=== PATIENT | female | born 1945 | race African-American/Black ===

== ENCOUNTER 2020-06-05 16:47 | Emergency (ER) | payer MEDICARE, OTHER ==
--- OUTSIDE RECORDS SUMMARY | 2020-06-05 16:49 | XMS REPORT | Clinical Summary ---
:1945 Author Organization [facility] Address [address] [place] [address] Care Team Providers Name Role Phone MD Stefanie Primary Care Provider Allergies Not on File Medications Not on file Active Problems Not on file Social History Tobacco Use Types Packs/Day Years Used Date Never Assessed Sex Assigned at Date Recorded Not on file Job Start Date Occupation Industry Not on file Not on file Not on file Travel History Travel Start Travel End No recent travel history available. Last Filed Vital Signs Not on file Plan of Treatment Health Maintenance Due Date Last Done Comments BREAST CANCER SCREENING 1997 COLONOSCOPY SCREENING 1997 SHINGLES VACCINES (#1) 1997 65+ PNEUMOCOCCAL VACCINE (1 of 2 - PCV13) 02/18/2012 INFLUENZA VACCINE 05/20/2020 Results Not on fileafter 06/05/2019 Insurance Payer Benefit Plan / Subscriber ID Effective Dates Phone Addre ss Type Group MEDICARE MEDICARE PART A xxxxxxxxxx 1998-Present [employer] Medicare AND B Guarantor Name Account Type Relation to Date of Phone Billing Patient Address Debi Sanches Personal/Family Self 1945 [id number] (Home) [place] [phone] [id number] (Work) Advance Directives For more information, please contact: [phone] Type Date Recorded Patient Cuffer Explanati on Advance Directives, Living Will and 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
--- OUTSIDE RECORDS SUMMARY | 2020-06-05 16:49 | XMS REPORT | Clinical Summary ---
:1945 Author Organization [facility] Address [address] [place] [address] Care Team Providers Name Role Phone Unavailable Primary Care Provider Unavailable Allergies No Known Allergies Medications Medication Sig Dispensed Refills Start Date End Date Status spironolactone Take 25 mg by mouth 0 Active (ALDACTONE) 25 MG 2 (two) times tablet daily. acetaZOLAMIDE Take 250 mg by 0 A ctive (DIAMOX) 250 MG mouth daily. tablet loratadine (CLARITIN) Take 10 mg by mouth 0 Active 10 mg tablet daily. cholecalciferol, Take 2,000 Units by 0 Active vitamin D3, 2,000 mouth daily. unit Tab omega-3 fatty Take 1,200 mg by 0 Active acids-vitamin E 1,000 mouth daily. mg Cap atorvastatin Take 40 mg by mouth 0 Active (LIPITOR) 40 MG daily. tablet folic acid (FOLVITE) Take 400 mcg by 0 Active 800 MCG tablet mouth daily. polycarbophil Take 625 mg by 0 A ctive (FIBERCON) 625 mg mouth daily. tablet tiotropium (SPIRIVA) Inhale 18 mcg by 0 Active 18 mcg inhalation mouth via inhaler capsule daily. arformoterol Take 15 mcg by 0 Ac tive (BROVANA) 15 mcg/2 mL nebulization 2 nebulizer solution (two) times daily. famotidine (PEPCID) Take 20 mg by mouth 0 Active 20 MG tablet daily. predniSONE Take 1 tablet (10 0 02/26/2017 Active (DELTASONE) 10 MG mg total) by mouth tablet as needed. Active Problems Problem Noted Date Stroke 02/24/2017 COPD (chronic obstructive pulmonary disease) 7 H/O: lung cancer 02/24/2017 Seizure 02/24/2017 Respiratory failure 02/23/2017 Acute respiratory failure with hypercapnia 02/23/2017 Acute encephalopathy 02/23/2017 Essential hypertension 02/23/2017 Family History Medical History Relation Name Comments COPD Brother Cancer Brother Asthma Daughter Diabetes Daughter Hypertension Daughter Cancer Father Asthma Sister Cancer Sister Mental illness Sister Hypertension Son Relation Name Status Comments Brother Daughter Father Sister Son Social History Tobacco Use Types Packs/Day Years Used Date Light Tobacco Smoker 0.25 Alcohol Use Drinks/Week oz/Week Comments No Sex Assigned at Date Recorded Not on file Job Start Date Occupation Industry Not on file Not on file Not on file Travel History Travel Start Travel End No recent travel history available. Last Filed Vital Signs Not on file Plan of Treatment Not on file Results Not on fileafter 06/05/2019 Insurance Payer Benefit Plan / Group Subscriber ID Type Phone A ddress MEDICARE MEDICARE A B xxxxxxxxxx Medicare Advance Directives For more information, please contact:[place] [address] [place], [place] [phone] Code Status Date Activated Date Inactivated Comments Full Code 02/23/2017 9:15 AM 02/26/2017 3:16 PM This code status was determined by: Patient
--- OUTSIDE RECORDS SUMMARY | 2020-06-05 16:50 | XMS REPORT | Continuity of Care Document ---
:1945 Author Organization [facility] t Address [address] [place] [address] Care Team Providers Name Role Phone Stefanie SANDHU Primary Care Physician KENDRA Attending Clinician Unavailable KENDRA Admitting Clinician Unavailable Problems Condition Condition Condition Status Onset Resolution Last Treating Co mments Source Name Details Category Date Date Treatment Clinician Date Stroke St[facility] Disease [facility] [place] COPD COPD Disease Active [facility] ([facility]ronic [facility] - obstructiv obstructiv 00:00: Me dical e e 00 Center pulmonary pulmonary disease) disease) H/O: lung H/O: lung Disease Active [facility] cancer cancer 02-24 [facility] 00 Center Seizure Seizure Disease Active [facility] 00 Center Respirator Respirator Disease Active [facility] y failure y failure 02-23 [facility] - [facility] 00 Center Acute Acute Disease Active [facility] respirator respirator 02-23 Roxana kes - y failure y failure 00:00: [facility] mariel with with 00 Center hypercapni hypercapni a a Acute Acute Disease Active [facility] encephalop encephalop - Roxana kes - athy athy 00:00: Medical 00 [place] Essential Essential Disease Active 2017-[address] [facility] hypertensi hypertensi - Roxana kes - on on 00:00: Medical 00 Center Iron Iron Problem Active [facility] deficiency deficiency Roxana kes - anemia anemia [facility] Umbilical Umbilical Problem Active [facility] hernia hernia [facility] - [facility] Hemorrhoid Hemorrhoid Problem Active [facility] 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 rhinitis [facility] - [facility] Dependence Dependence Problem Active [facility] on [facility] - supplement supplement Me moria al oxygen al oxygen l [facility] Hypertensi Hypertensi Problem Active [facility] on [facility] - [facility] Bilateral Bilateral Problem Active [facility] - extremity extremity Jc lita edema edema l [facility] Hyperglobu Hyperglobu Problem Active [facility] linemia linemia [facility] - [facility] Hyperlipid Hyperlipid Problem Active [facility] emia emia kes - [facility] Anemia Anemia Problem Active [facility] Lung Lung Problem Active [facility] cancer cancer [facility] - [facility] COPD COPD Problem Active [facility] (chronic (chronic [facility] - obstructiv obstructiv Me moria e e l pulmonary pulmonary Outp ati disease) disease) ent Clinics Vitamin D Vitamin D Problem Active [facility] deficiency deficiency Roxana kes - [facility] Diabetes Diabetes Problem Active [facility] mellitus mellitus [facility] - type 2, type 2, Memoria diet-contr diet-contr l olled olled [facility] Family Family Problem Active [facility] history of history of Roxana kes - colon colon [facility] cancer cancer l [facility] History of History of Problem Active [facility] cerebrovas cerebrovas Roxana kes - cular cular [facility]oria accident accident l [facility] Diverticul Diverticul Problem Active [facility] osis of osis of [facility] - colon colon [facility] Seizure Seizure Problem Active [facility] disorder disorder [facility] - [facility] Dementia Dementia Problem Active [facility] without without [facility] - behavioral behavioral Me moria disturbanc disturbanc l e, e, Outpati unspecifie unspecifie en t d dementia d dementia Cl inics type type Medicare Medicare Problem Active [facility] t annual annual [facility] - wellness wellness [facility] a visit, visit, l subsequent subsequent [facility] Clinics Allergies, Adverse Reactions, Alerts This patient has no known allergies or adverse reactions. Family History Family Member Diagnosis Comments Start Date Stop Date Source Natural brother COPD [facility] Natural brother Cancer [facility] Natural daughter Asthma [facility] Natural daughter Diabetes [facility] Natural daughter Hypertension [facility] Natural father Cancer [facility] Natural sister Asthma [facility] Natural sister Cancer [facility] Natural sister Mental illness [facility] Natural son Hypertension [facility] Social History Social Habit Start Date Stop Date Quantity Comments Source Sex Assigned At [facility] Cigarettes smoked 2017-02-24 2017-02-24 [facility] current (pack per 00:00:00 00:00:00 Medical Center day) - Reported Smoking Status Start Date Stop Date Source Light tobacco smoker 2017-02-24 00:00:00 [facility] Medications Ordered Filled Start Stop Current Ordering Indication Dosage Frequency Signature Comments Components Source Medication Medication Date Date Medication? Clinician (SIG) Name Name Ferrous Ferrous 2018-09 Yes Na Lin [address] [facility] Sulfate Sulfate 0-28 [facility] - 00:[facility]: [facility] 00 [facility] Hemocyte Hemocyte 2018-09 Yes Na Lin [address] [facility] Plus Plus 0-24 [facility] - 00:00: [facility]oria 00 [facility] predniSONE Yes 10mg Take 1 [facility] (DELTASONE) 6-10 tablet (10 Roxana kes - 10 MG 00:00: mg total) Medical tablet 00 by mouth Center as needed. spironolact Yes 25mg Q.5D Take [address] [facility] one 6-07 by mouth 2 [facility] - (ALDACTONE) 18:44: (two) Medic al 25 MG 53 times Center tablet daily. acetaZOLAMI Yes 250mg QD Take [address] [place] (DIAMOX) 6-07 mg by [facility] - 250 MG 18:44: mouth Medical tablet 53 daily. [place] loratadine Yes 10mg QD Take [address] (CLARITIN) 6-07 by mouth [facility] - 10 mg 18:44: daily. Medical tablet 53 [place] cholecalcif Yes 2000U QD Take 2,[address] omer, 6-07 Units by [facility] - vitamin D3, 18:44: mouth Medic al 2,000 unit 53 daily. [place] Tab omega-3 Yes 1200mg QD Take 1,[address] fatty 6-07 mg by [facility] - acids-vitam 18:44: mouth Medic al in E 1,000 53 daily. [place] mg Cap atorvastati Yes 40mg QD Take [address] n (LIPITOR) 6-07 by mouth Luke [facility] - 40 MG 18:44: daily. Medical tablet 53 [place] folic acid Yes 400ug QD Take [address] (FOLVITE) 6-07 mcg by [facility] - 800 MCG 18:44: mouth Medical tablet 53 daily. [place] polycarboph Yes 625mg QD Take [address] il 6-07 mg by [facility] - (FIBERCON) 18:44: mouth Medica l 625 mg 53 daily. [place] tablet tiotropium Yes 18ug QD Inhale [address] (SPIRIVA) 6-07 mcg by [facility] - 18 mcg 18:44: mouth via Medica l inhalation 53 inhaler Center capsule daily. arformotero Yes 15ug Q.5D Take [address] l (BROVANA) 6-07 mcg by [facility] - 15 mcg/2 mL 18:44: nebulizati Medical nebulizer 53 on 2 (two) Cent er solution times daily. famotidine Yes 20mg QD Take [address] (PEPCID) 20 6-07 by mouth Luke s - MG tablet 18:44: daily. Medica l 53 [place] Lasix Lasix Yes Na Lin [address] [facility] - [facility] Spiriva Spiriva Yes Na Lin [address] HandiHaler HandiHaler Iris es - Memoria [facility] Klor-Con 10 Klor-Con 10 Yes Na Lin TAKE [address] [facility] TABLET BY [facility]ukes - MOUTH Memoria EVERY DAY l [facility] ent Clinics ProAir HFA ProAir HFA Yes Na Lin [address] [facility] needed [facility] - [facility] Vitamin D3 Vitamin D3 Yes Na Lin [address] [facility] - [facility] l [facility] Claritin Claritin Yes Na Lin [address] [facility] - [facility] Albuterol Albuterol Yes Na Lin [address] [facility] Sulfate Sulfate needed [facility] - [facility]oria l [facility] Lipitor Lipitor Yes Na Lin [address] [facility] - [facility] l [facility] ent [facility] Lipitor Lipitor Yes Na Lin [address] kes - Memoria [facility] Spironolact Spironolact Yes Na Lin [address] [facility] one one with food [facility] Folic Acid Folic Acid Yes Na Lin [address] [facility] kes - Memoria l [facility] Levetiracet Levetiracet Yes Na Lin [address] am am [facility] - Memoria [facility] Furosemide Furosemide Yes Na Lin TAKE [address] [facility] TABLET BY Lukes - MOUTH Memoria DAILY FOR l 30 DAYS [facility] Brovana Brovana Yes Na Lin [address] kes - Memoria l [facility] Atorvastati Atorvastati Yes Na Lin TAKE [address] [facility] n Calcium n Calcium TABLET BY [facility]ukes - MOUTH Memoria EVERY DAY l [facility] Potassium Potassium Yes Na Lin TAKE [address] [facility] Chloride ER Chloride ER TABLET BY [facility]ukes - MOUTH Memoria EVERY DAY l [facility] Immunizations Ordered Filled Immunization Date Status Comments [facility] e Immunization Name Name FluJOSE ROBERTO FluAD 2018-06-[address] [facility] - 00:[facility]00 [facility] Procedures This patient has no known procedures. Plan of Care Planned Activity Planned Date Details Comments Source Future Scheduled 2020-05-20 INFLUENZA VACCINE Aretha angulo [facility] 00:00:00 [code = INFLUENZA VACCINE] Future Scheduled 2012-02-18 65+ PNEUMOCOCCAL [place] [facility] 00:00:00 VACCINE (1 of 2 - PCV13) [code = 65+ PNEUMOCOCCAL VACCINE (1 of 2 - PCV13)] Future Scheduled 1997 BREAST CANCER [facility]ist Test 00:00:00 SCREENING [code = BREAST CANCER SCREENING] Future Scheduled 1997 COLONOSCOPY SCREENING abelino [facility] Test 00:00:00 [code = COLONOSCOPY SCREENING] Future Scheduled 1997 SHINGLES VACCINES (#1) [place] [facility] 00:00:00 [code = SHINGLES VACCINES (#1)] Encounters Start End Encounter Admission Attending Care Care Encounter Source Date/Time Date/Time Type Type Clinicians Facility Department ID 2020-04-13 2020-04-13 [facility] [id number] [facility] 12:42:00 12:42:00 t [facility] [employer] [facility] Medicine l Medicine Outpati ent Clinics 2020-03-25 2020-03-25 [facility] [id number] [facility] 09:40:00 09:40:00 t [facility] [employer] [facility] Medicine l Medicine Outpati ent Clinics 2019-12-20 2019-12-20 [facility] [id number] [facility] 09:20:00 09:20:00 t [facility] [employer] [facility] Medicine l Medicine Outpati ent Clinics 2019-10-03 2019-10-03 [facility] [id number] [facility] 16:31:00 16:31:00 t [facility] [employer] [facility] Medicine Medicine Outpati ent Clinics 2019-07-14 2019-07-14 [facility] [id number] [facility] 14[facility]53:00 14:53:00 t [facility] [employer] [facility] Medicine Outpati ent Clinics 2019-07-11 2019-07-11 [facility] [id number] 09:56:00 09:56:00 t [facility] [employer] [facility] Medicine l Medicine Outpati ent Clinics 2019-07-11 2019-07-11 [facility] [id number] 09:00:00 09:00:00 t [facility] [employer] [facility] Medicine l Medicine Outpati ent Clinics 2019-04-05 2019-04-05 [facility] [id number] [facility] 11[facility]40:00 11:40:00 t [facility] [employer] [facility] Medicine l Medicine Outpati ent Clinics 2018-12-13 2018-12-13 [facility] [id number] [facility] 09:15:00 09:15:00 t [facility] [employer] [facility] Medicine Outpati ent Clinics 2018-12-13 2018-12-13 [facility] [id number] 09:00:00 09:00:00 t [employer] - [employer] [facility] Medicine Outpati ent Clinics 2018-09-14 2018-09-14 [facility] [id number] [facility] 09:00:00 09:00:00 t Fredio s - [place] [facility] Medicine Outpati ent Clinics 2018-06-15 2018-06-15 [facility] [id number] 09:15:00 09:15:00 t [employer] - [employer] [facility] Medicine Outpati ent Clinics 2018-03-15 2018-03-15 [facility] [id number] 11:15:00 11:15:00 t [employer] [facility] Medicine Outpati ent Clinics 2017-12-07 2017-12-07 [facility] [id number] 09:30:00 09:30:00 t [employer] [facility] Medicine Outpati ent Clinics Results Test Description Test Time Test Comments Results Result Comments Source BLOOD CULTURE 2017-03-02 06:00:00 Test Item Value Reference Range Interpretation Comme nts CULTURE (BEAKER) (test code = 1095) No growth in 5 days BLOOD [id number] 18:00:00 Test Item Value Reference Range Interpretation Comments CULTURE (BEAKER) (test No growth in 5 days code = 1095) POCT-GLUCOSE [id number] 04:51:00 Test Item Value Reference Range Interpretation Comments POC-GLUCOSE METER 129 mg/dL 70-110 H TESTED AT [facility] (BEAKER) (test code = [place] 1538) [id number] POCT-GLUCOSE [id number] 04:49:00 Test Item Value Reference Range Interpretation Comments POC-GLUCOSE METER 128 mg/dL 70-110 H TESTED AT [facility] (BEAmakem) (test code = [place] 1538) [id number] URINE [id number] 11:35:00 Test Item Value Reference Range Interpretation Comments CULTURE (BEAKER) (test code = 1095) No growth COMPREHENSIVE METABOLIC [id number] 04:43:00 Test Item Value Reference Range Interpretation Comments TOTAL PROTEIN 6.9 gm/dL 6.0-8.3 (BEAKER) (test code = 770) ALBUMIN (BEAKER) 3.5 g/dL 3.5-5.0 (test code = 1145) ALKALINE PHOSPHATASE 92 U/L 40-150 (BEAKER) (test code = 346) BILIRUBIN TOTAL 0.2 mg/dL 0.2-1.2 (BEAKER) (test code = 377) SODIUM (BEAKER) (test 145 meq/L 136-145 code = 381) POTASSIUM (BEAKER) 3.6 meq/L 3.5-5.1 (test code = 379) CHLORIDE (BEAKER) 105 meq/L 98-107 (test code = 382) CO2 (BEAKER) (test 30 meq/L 22-29 H code = 355) BLOOD UREA NITROGEN 16 mg/dL 7-21 (BEAKER) (test code = 354) CREATININE (BEAKER) 0.73 mg/dL 0.57-1.25 (test code = 358) GLUCOSE RANDOM 102 mg/dL 70-105 (BEAKER) (test code = 652) CALCIUM (BEAKER) 9.5 mg/dL 8.4-10.2 (test code = 697) AST (SGOT) (BEAKER) 15 U/L 5-34 (test code = 353) ALT (SGPT) (BEAKER) 8 U/L 6-55 (test code = 347) EGFR (BEAKER) (test 96 mL/min/1.73 ESTIMA PAULETTE GFR IS code = 1092) sq m NOT ACCURATE CREATININE CLEARANCE IN PREDICTING GLOMERULAR FILTRATION RATE . ESTIMATED GFR I S NOT APPLICABLE FOR DIALYSIS PATIEN TS. CBC W/PLT COUNT & AUTO [id number] 03:54:00 Test Item Value Reference Range Interpretation Comments WHITE BLOOD CELL COUNT (BEAKER) 8.9 K/ L 4.0-10.0 (test code = 775) RED BLOOD CELL COUNT (BEAKER) 3.55 M/ L 4.00-5.00 L (test code = 761) HEMOGLOBIN (BEAKER) (test code = 10.7 GM/DL 12.0-15.0 L 410) HEMATOCRIT (BEAKER) (test code = 34.3 % 36.0-45.0 L 411) MEAN CORPUSCULAR VOLUME (BEAKER) 96.7 fL 82.0-99.0 (test code = 753) MEAN CORPUSCULAR HEMOGLOBIN 30.1 pg 27.0-33.0 (BEAKER) (test code = 751) MEAN CORPUSCULAR HEMOGLOBIN CONC 31.1 GM/DL 32.0-36.0 L (BEAKER) (test code = 752) RED CELL DISTRIBUTION WIDTH 14.8 % 10.3-14.2 H (BEAKER) (test code = 412) PLATELET COUNT (BEAKER) (test 222 K/CU MM 150-430 code = 756) MEAN PLATELET VOLUME (BEAKER) 8.0 fL 6.5-10.5 (test code = 754) NUCLEATED RED BLOOD CELLS 0 /100 WBC 0-0 (BEAKER) (test code = 413) NEUTROPHILS RELATIVE PERCENT 68 % (BEAKER) (test code = 429) LYMPHOCYTES RELATIVE PERCENT 24 % (BEAKER) (test code = 430) MONOCYTES RELATIVE PERCENT 8 % (BEAKER) (test code = 431) EOSINOPHILS RELATIVE PERCENT 0 % (BEAKER) (test code = 432) BASOPHILS RELATIVE PERCENT 0 % (BEAKER) (test code = 437) NEUTROPHILS ABSOLUTE COUNT 6.03 K/ L 1.80-8.00 (BEAKER) (test code = 670) LYMPHOCYTES ABSOLUTE COUNT 2.16 K/ L 1.48-4.50 (BEAKER) (test code = 414) MONOCYTES ABSOLUTE COUNT (BEAKER) 0.72 K/ L 0.00-1.30 (test code = 415) EOSINOPHILS ABSOLUTE COUNT 0.02 K/ L 0.00-0.50 (BEAKER) (test code = 416) BASOPHILS ABSOLUTE COUNT (BEAKER) 0.01 K/ L 0.00-0.20 (test code = 417) 0.00POCT-GLUCOSE [id number] 13:06:00 Test Item Value Reference Range Interpretation Comments POC-GLUCOSE METER 180 mg/dL 70-[address] [facility] (BEAKER) (test code = [place] 1538) [id number] POCT-GLUCOSE [id number] 06:19:00 Test Item Value Reference Range Interpretation Comments POC-GLUCOSE METER 151 mg/dL 70-[address] [facility] (BEAKER) (test code = [place] 1538) [id number] COMPREHENSIVE METABOLIC [id number] 05:21:00 Test Item Value Reference Range Interpretation Comments TOTAL PROTEIN 6.8 gm/dL 6.0-8.3 (BEAKER) (test code = 770) ALBUMIN (BEAKER) 3.3 g/dL 3.5-5.0 L (test code = 1145) ALKALINE PHOSPHATASE 82 U/L 40-150 (BEAKER) (test code = 346) BILIRUBIN TOTAL 0.1 mg/dL 0.2-1.2 L (BEAKER) (test code = 377) SODIUM (BEAKER) (test 146 meq/L 136-145 H code = 381) POTASSIUM (BEAKER) 3.8 meq/L 3.5-5.1 (test code = 379) CHLORIDE (BEAKER) 110 meq/L 98-107 H (test code = 382) CO2 (BEAKER) (test 28 meq/L 22-29 code = 355) BLOOD UREA NITROGEN 17 mg/dL 7-21 (BEAKER) (test code = 354) CREATININE (BEAKER) 0.70 mg/dL 0.57-1.25 (test code = 358) GLUCOSE RANDOM 103 mg/dL 70-105 (BEAKER) (test code = 652) CALCIUM (BEAKER) 9.3 mg/dL 8.4-10.2 (test code = 697) AST (SGOT) (BEAKER) 12 U/L 5-34 (test code = 353) ALT (SGPT) (BEAKER) 8 U/L 6-55 (test code = 347) EGFR (BEAKER) (test 100 ESTIMATE D GFR IS code = 1092) mL/min/1.73 sq NOT ACCURA TE m CREATININE CLEARANCE IN PREDICTING GLOMERULAR FILTRATION RATE . ESTIMATED GFR I S NOT APPLICABLE FOR DIALYSIS PATIEN TS. CBC W/PLT COUNT & AUTO [id number] 05:13:00 Test Item Value Reference Range Interpretation Comments WHITE BLOOD CELL COUNT (BEAKER) 8.9 K/ L 4.0-10.0 (test code = 775) RED BLOOD CELL COUNT (BEAKER) 3.49 M/ L 4.00-5.00 L (test code = 761) HEMOGLOBIN (BEAKER) (test code = 10.7 GM/DL 12.0-15.0 L 410) HEMATOCRIT (BEAKER) (test code = 34.2 % 36.0-45.0 L 411) MEAN CORPUSCULAR VOLUME (BEAKER) 98.1 fL 82.0-99.0 (test code = 753) MEAN CORPUSCULAR HEMOGLOBIN 30.6 pg 27.0-33.0 (BEAKER) (test code = 751) MEAN CORPUSCULAR HEMOGLOBIN CONC 31.2 GM/DL 32.0-36.0 L (BEAKER) (test code = 752) RED CELL DISTRIBUTION WIDTH 13.5 % 10.3-14.2 (BEAKER) (test code = 412) PLATELET COUNT (BEAKER) (test 213 K/CU MM 150-430 code = 756) MEAN PLATELET VOLUME (BEAKER) 7.9 fL 6.5-10.5 (test code = 754) NUCLEATED RED BLOOD CELLS 0 /100 WBC 0-0 (BEAKER) (test code = 413) NEUTROPHILS RELATIVE PERCENT 76 % (BEAKER) (test code = 429) LYMPHOCYTES RELATIVE PERCENT 18 % (BEAKER) (test code = 430) MONOCYTES RELATIVE PERCENT 6 % (BEAKER) (test code = 431) EOSINOPHILS RELATIVE PERCENT 0 % (BEAKER) (test code = 432) BASOPHILS RELATIVE PERCENT 0 % (BEAKER) (test code = 437) NEUTROPHILS ABSOLUTE COUNT 6.83 K/ L 1.80-8.00 (BEAKER) (test code = 670) LYMPHOCYTES ABSOLUTE COUNT 1.58 K/ L 1.48-4.50 (BEAKER) (test code = 414) MONOCYTES ABSOLUTE COUNT (BEAKER) 0.51 K/ L 0.00-1.30 (test code = 415) EOSINOPHILS ABSOLUTE COUNT 0.01 K/ L 0.00-0.50 (BEAKER) (test code = 416) BASOPHILS ABSOLUTE COUNT (BEAKER) 0.01 K/ L 0.00-0.20 (test code = 417) 0.00POCT-GLUCOSE [id number] 00:37:00 Test Item Value Reference Range Interpretation Comments POC-GLUCOSE METER 131 mg/dL 70-[address] [facility] (BEAKER) (test code = [place] 1538) [id number] LACTIC ACID, ARTERIAL, WHOLE [id number] 16:28:00 Test Item Value Reference Range Interpretation Comments LACTATE BLOOD ARTERIAL (2) 3.0 mmol/L 0.5-2.2 H (BEAKER) (test code = 2874) Effective 01/21/2016: Units/Reference Range ChangeNew: 0.5-2.2 mmol/L Previous: 5-20 mg/[id number] 13:41:00 Test Item Value Reference Range Interpretation Comments PROCALCITONIN (BEAKER) (test code 0.06 ng/mL <0.05 H = 3036) SEPSIS RISK (ng/mL)Low: 0.05-0.50Intermediate: 0.51-2.00High: >=2.01URINALYSIS W/ [id number] 12:52:00 Test Item Value Reference Range Interpretation Comments COLOR (BEAKER) (test code = 470) Yellow CLARITY (BEAKER) (test code = Clear 469) SPECIFIC GRAVITY UA (BEAKER) 1.024 1.001-1.035 (test code = 468) PH UA (BEAKER) (test code = 467) 5.5 5.0-8.0 PROTEIN UA (BEAKER) (test code = 10 mg/dL Negative A 464) GLUCOSE UA (BEAKER) (test code = Negative Negative 365) KETONES UA (BEAKER) (test code = Negative Negative 371) BILIRUBIN UA (BEAKER) (test code Negative Negative = 462) BLOOD UA (BEAKER) (test code = Negative Negative 461) NITRITE UA (BEAKER) (test code = Negative Negative 465) LEUKOCYTE ESTERASE UA (BEAKER) Negative Negative (test code = 466) UROBILINOGEN UA (BEAKER) (test 0.2 mg/dL 0.2-1.0 code = 463) RBC UA (BEAKER) (test code = 2 /HPF 519) WBC UA (BEAKER) (test code = 6 /HPF 520) BACTERIA (BEAKER) (test code = Rare 517) MUCUS (BEAKER) (test code = Occasional 1574) SQUAMOUS EPITHELIAL (BEAKER) < /HPF (test code = 516) HYALINE CASTS (BEAKER) (test 16 /LPF code = 514) SOURCE(BEAKER) (test code = Urine, [place] 2795) CBC W/PLT COUNT & AUTO [id number] 06:16:00 Test Item Value Reference Range Interpretation Comments WHITE BLOOD CELL COUNT (BEAKER) 13.4 K/ L 4.0-10.0 H (test code = 775) RED BLOOD CELL COUNT (BEAKER) 3.56 M/ L 4.00-5.00 L (test code = 761) HEMOGLOBIN (BEAKER) (test code = 10.5 GM/DL 12.0-15.0 L 410) HEMATOCRIT (BEAKER) (test code = 34.9 % 36.0-45.0 L 411) MEAN CORPUSCULAR VOLUME (BEAKER) 98.2 fL 82.0-99.0 (test code = 753) MEAN CORPUSCULAR HEMOGLOBIN 29.7 pg 27.0-33.0 (BEAKER) (test code = 751) MEAN CORPUSCULAR HEMOGLOBIN CONC 30.2 GM/DL 32.0-36.0 L (BEAKER) (test code = 752) RED CELL DISTRIBUTION WIDTH 13.6 % 10.3-14.2 (BEAKER) (test code = 412) PLATELET COUNT (BEAKER) (test 195 K/CU MM 150-430 code = 756) MEAN PLATELET VOLUME (BEAKER) 8.5 fL 6.5-10.5 (test code = 754) NUCLEATED RED BLOOD CELLS 0 /100 WBC 0-0 (BEAKER) (test code = 413) NEUTROPHILS RELATIVE PERCENT 84 % (BEAKER) (test code = 429) LYMPHOCYTES RELATIVE PERCENT 10 % (BEAKER) (test code = 430) MONOCYTES RELATIVE PERCENT 5 % (BEAKER) (test code = 431) EOSINOPHILS RELATIVE PERCENT 0 % (BEAKER) (test code = 432) BASOPHILS RELATIVE PERCENT 0 % (BEAKER) (test code = 437) NEUTROPHILS ABSOLUTE COUNT 11.30 K/ L 1.80-8.00 H (BEAKER) (test code = 670) LYMPHOCYTES ABSOLUTE COUNT 1.36 K/ L 1.48-4.50 L (BEAKER) (test code = 414) MONOCYTES ABSOLUTE COUNT (BEAKER) 0.72 K/ L 0.00-1.30 (test code = 415) EOSINOPHILS ABSOLUTE COUNT 0.03 K/ L 0.00-0.50 (BEAKER) (test code = 416) BASOPHILS ABSOLUTE COUNT (BEAKER) 0.05 K/ L 0.00-0.20 (test code = 417) [id number] METABOLIC [id number] 06:11:00 Test Item Value Reference Range Interpretation Comments TOTAL PROTEIN 7.2 gm/dL 6.0-8.3 Specimen sligh tly (BEAKER) (test code = hemoly zed 770) ALBUMIN (BEAKER) 3.3 g/dL 3.5-5.0 L Specimen sl ightly (test code = 1145) hemolyzed ALKALINE PHOSPHATASE 85 U/L 40-150 (BEAKER) (test code = 346) BILIRUBIN TOTAL 0.2 mg/dL 0.2-1.2 Specimen sli ghtly (BEAKER) (test code = hemoly zed 377) SODIUM (BEAKER) (test 144 meq/L 136-145 code = 381) POTASSIUM (BEAKER) 4.5 meq/L 3.5-5.1 Specimen slightly (test code = 379) hemolyzed CHLORIDE (BEAKER) 111 meq/L 98-107 H (test code = 382) CO2 (BEAKER) (test 27 meq/L 22-29 code = 355) BLOOD UREA NITROGEN 13 mg/dL 7-21 (BEAKER) (test code = 354) CREATININE (BEAKER) 0.72 mg/dL 0.57-1.25 Specimen slightly (test code = 358) hemolyzed GLUCOSE RANDOM 135 mg/dL 70-105 H (BEAKER) (test code = 652) CALCIUM (BEAKER) 9.0 mg/dL 8.4-10.2 (test code = 697) AST (SGOT) (BEAKER) 15 U/L 5-34 Specimen slightly (test code = 353) hemolyzed ALT (SGPT) (BEAKER) 8 U/L 6-55 Specimen slightly (test code = 347) hemolyzed EGFR (BEAKER) (test 97 mL/min/1.73 ESTIMA PAULETTE GFR IS code = 1092) sq m NOT ACCURATE CREATININE CLEARANCE IN PREDICTING GLOMERULAR FILTRATION RATE . ESTIMATED GFR I S NOT APPLICABLE FOR DIALYSIS PATIEN TS. LEGIONELLA ANTIGEN, [id number] 00:46:00 Test Item Value Reference Range Interpretation Comments L. PNEUMOPHILA Negative - see Negative fo r L. SEROGP 1 UR AG comment pneumophila (BEAKER) (test code serogrou p 1 antigen, = 1156) suggesting no r ecent or current infe ction with this serog roup. Legionellosis c annot be ruled out si nce other serogroup s and species may cau se disease. STREP PNEUMONIAE [id number] 00:46:00 Test Item Value Reference Range Interpretation Comments STREP PNEUMONIAE Presumptive negative Presumptive negative ANTIGEN (BEAKER) for pneumococcal for pneumococcal (test code = 1615) pneumonia - see pneumonia - see comment commen Presumptive negative for pneumococcal pneumonia, suggesting no current or recent pneumococcal infection. Infection due to S. pneumoniae cannot be ruled out since the antigen present in the sample may be below the detection limit of the test. POCT-GLUCOSE [id number] 18:18:00 Test Item Value Reference Range Interpretation Comments POC-GLUCOSE METER 159 mg/dL 70-[address] [facility] (BEAKER) (test code = TAYLOR Camilo [facility] 1538) [address] BLOOD GAS, [id number] 15:41:00 Test Item Value Reference Range Interpretation Comments PH ARTERIAL (BEAKER) (test code = 7.31 7.35-7.45 L 383) PCO2 ARTERIAL (BEAKER) (test code 57 mmHg 35-45 H = 384) PO2 ARTERIAL (BEAKER) (test code = 125 mmHg 80-90 H 385) O2 SATURATION ARTERIAL (BEAKER) 98.1 % 96.0-97.0 H (test code = 386) HCO3 ARTERIAL (BEAKER) (test code 28 mmol/L 21-29 = 388) BASE EXCESS ARTERIAL (BEAKER) 1.2 mmol/L -2.0-3.0 (test code = 387) PATIENT TEMPERATURE (BEAKER) (test 37.0 C code = 1818) FIO2 (BEAKER) (test code = 1819) 21.0 % RAPID DRUG SCREEN, [id number] 13:30:00 Test Item Value Reference Range Interpretation Comments BARBITURATE URINE (BEAKER) (test Negative Negative code = 725) BENZODIAZEPINE SCREEN URINE (BEAKER) Positive Negative A (test code = 726) COCAINE (METAB.) SCREEN (BEAKER) Negative Negative (test code = 1164) METHADONE SCREEN (BEAKER) (test code Negative Negative = 1436) OPIATE SCREEN URINE (BEAKER) (test Negative Negative code = 734) CANNABINOID SCREEN URINE (BEAKER) Negative Negative (test code = 727) AMPH/METHAMPH SCREEN (BEAKER) (test Negative Negative code = 1438) PHENCYCLIDINE SCREEN URINE (BEAKER) Negative Negative (test code = 608) OXYCODONE SCREEN URINE (BEAKER) Negative Negative (test code = 2761) DRUG CUTOFF CONC.Cocaine 300 ng/mL Cannabinoid 50 ng/mL Benzodiazepine 200 ng/mLBarbiturate 200 ng/mLPhencyclidine 25 ng/mLOpiate 300 ng/mLMethadone 300 ng/mLAmphetamine/ 1000 ng/mL MethamphetamineOxycodone 300 ng/[id number] 13:21:00 Test Item Value Reference Range Interpretation Comments MAGNESIUM (BEAKER) (test code = 1.5 mg/dL 1.6-2.6 L 627) COMPREHENSIVE METABOLIC [id number] 13:21:00 Test Item Value Reference Range Interpretation Comments TOTAL PROTEIN 7.4 gm/dL 6.0-8.3 (BEAKER) (test code = 770) ALBUMIN (BEAKER) 3.5 g/dL 3.5-5.0 (test code = 1145) ALKALINE PHOSPHATASE 97 U/L 40-150 (BEAKER) (test code = 346) BILIRUBIN TOTAL 0.1 mg/dL 0.2-1.2 L (BEAKER) (test code = 377) SODIUM (BEAKER) (test 142 meq/L 136-145 code = 381) POTASSIUM (BEAKER) 3.4 meq/L 3.5-5.1 L (test code = 379) CHLORIDE (BEAKER) 109 meq/L 98-107 H (test code = 382) CO2 (BEAKER) (test 24 meq/L 22-29 code = 355) BLOOD UREA NITROGEN 12 mg/dL 7-21 (BEAKER) (test code = 354) CREATININE (BEAKER) 0.77 mg/dL 0.57-1.25 (test code = 358) GLUCOSE RANDOM 187 mg/dL 70-105 H (BEAKER) (test code = 652) CALCIUM (BEAKER) 9.1 mg/dL 8.4-10.2 (test code = 697) AST (SGOT) (BEAKER) 13 U/L 5-34 (test code = 353) ALT (SGPT) (BEAKER) 8 U/L 6-55 (test code = 347) EGFR (BEAKER) (test 90 mL/min/1.73 ESTIMA PAULETTE GFR IS code = 1092) sq m NOT ACCURATE CREATININE CLEARANCE IN PREDICTING GLOMERULAR FILTRATION RATE . ESTIMATED GFR I S NOT APPLICABLE FOR DIALYSIS PATIEN JUSTIN. [id number] 13:21:00 Test Item Value Reference Range Interpretation Comments LIPASE (BEAKER) (test code = 749) 31 U/L 8-78 CBC (HEMOGRAM ONLY)[id number] 13:06:00 Test Item Value Reference Range Interpretation Comments WHITE BLOOD CELL COUNT (BEAKER) 10.6 K/ L 4.0-10.0 H (test code = 775) RED BLOOD CELL COUNT (BEAKER) 3.48 M/ L 4.00-5.00 L (test code = 761) HEMOGLOBIN (BEAKER) (test code = 10.5 GM/DL 12.0-15.0 L 410) HEMATOCRIT (BEAKER) (test code = 33.5 % 36.0-45.0 L 411) MEAN CORPUSCULAR VOLUME (BEAKER) 96.1 fL 82.0-99.0 (test code = 753) MEAN CORPUSCULAR HEMOGLOBIN 30.2 pg 27.0-33.0 (BEAKER) (test code = 751) MEAN CORPUSCULAR HEMOGLOBIN CONC 31.4 GM/DL 32.0-36.0 L (BEAKER) (test code = 752) RED CELL DISTRIBUTION WIDTH 14.7 % 10.3-14.2 H (BEAKER) (test code = 412) PLATELET COUNT (BEAKER) (test 197 K/CU MM 150-430 code = 756) MEAN PLATELET VOLUME (BEAKER) 8.1 fL 6.5-10.5 (test code = 754) NUCLEATED RED BLOOD CELLS 0 /100 WBC 0-0 (BEAKER) (test code = 413) 0.00LACTIC ACID, ARTERIAL, WHOLE [id number] 12:59:00 Test Item Value Reference Range Interpretation Comments LACTATE BLOOD ARTERIAL (2) 3.0 mmol/L 0.5-2.2 H (BEAKER) (test code = 2874) Effective 01/21/2016: Units/Reference Range ChangeNew: 0.5-2.2 mmol/L Previous: 5-20 mg/dLBLOOD GAS, [id number] 12:12:00 Test Item Value Reference Range Interpretation Comments PH ARTERIAL (BEAKER) (test code = 7.31 7.35-7.45 L 383) PCO2 ARTERIAL (BEAKER) (test code 53 mm Hg 35-45 H = 384) PO2 ARTERIAL (BEAKER) (test code 104 mm Hg 80-90 H = 385) O2 SATURATION ARTERIAL (BEAKER) 97.2 % 96.0-97.0 H (test code = 386) HCO3 ARTERIAL (BEAKER) (test code 26 mmol/L 21-29 = 388) BASE EXCESS ARTERIAL (BEAKER) -0.7 mmol/L -2.0-3.0 (test code = 387) PATIENT TEMPERATURE (BEAKER) 37.0 (test code = 1818) FIO2 (BEAKER) (test code = 1819) 40 POCT-GLUCOSE [id number] 12:07:00 Test Item Value Reference Range Interpretation Comments POC-GLUCOSE METER 157 mg/dL 70-[address] [facility] ([facility]) (test code = TAYLOR MCFADDEN [place] 1538) [id number]
--- OUTSIDE RECORDS SUMMARY | 2020-06-05 16:50 | XMS REPORT ---
:1945 Author Organization eClinicalWorks Care Team Providers Name Role Phone Lin, Na Provider Role Unavailable Allergies, Adverse Reactions, Alerts Substance Reaction Event Type N.K.D.A. Info Not Available Non Drug Allergy Problems Problem Type Condition Code Onset Dates Condition Statu s Assessment Dependence on supplemental oxygen Z99.81 Active Assessment Hyperglobulinemia R77.1 Active Assessment Alkaline phosphatase elevation R74.8 Active Assessment Anemia, unspecified type D64.9 Act rusty Assessment Hyperlipidemia E78.5 Active Problem Lung cancer C34.90 Active Assessment Hypertension I10 Active Problem History of cerebrovascular accident Z86.73 Active Assessment COPD (chronic obstructive pulmonary J44.9 Active disease) Problem Diabetes mellitus type 2, E11.9 Ac tive diet-controlled Problem Diverticulosis of colon K57.30 Acti ve Problem Family history of colon cancer Z80.0 Active Problem Dementia without behavioral F03.90 Active disturbance, unspecified dementia type Problem Seizure disorder G40.909 Active Problem Anemia D64.9 Active Problem Iron deficiency anemia, unspecified D50.9 Active iron deficiency anemia type Assessment Diabetes mellitus type 2, E11.9 Ac tive diet-controlled Problem Hyperglobulinemia R77.1 Active Problem Dependence on supplemental oxygen Z99.81 Active Problem Medicare annual wellness visit, Z00.00 Active subsequent Problem Bilateral lower extremity edema R60.0 Active Problem Hypertension I10 Active Problem Allergic rhinitis J30.9 Active Problem Vitamin D deficiency E55.9 Active Problem COPD (chronic obstructive pulmonary J44.9 Active disease) Problem Hemorrhoids K64.9 Active Problem Umbilical hernia K42.9 Active Problem Hyperlipidemia E78.5 Active Problem Iron deficiency anemia D50.9 Activ e Medications Medication Code Code Instructions Start End Status Dosage System Date Date Levetiracetam [facility] 38531254209 1000 MG Orally Active 1 tablet Twice a day Atorvastatin ND 59166496528 40 MG Active TAKE 1 Calcium TABLET BY MOUTH EVERY DAY Folic Acid ND 72267978245 0.8 MG Orally Active 1 c apsule Once a day Hemocyte Plus [facility] 34687616622 106-1 MG Orally Active 1 capsule Once a day Furosemide ND 34785558975 40 Active TAKE 1 TABLET BY MOUTH DAILY FOR [address] [facility] 00799756797 40 Orally Once Active 1 tab let a day Lipitor [facility] 01518606724 40 MG Orally Active 1 table t Once a day Klor-Con [address] [facility] 76149182246 10 MEQ Active TAKE 1 TABLET BY MOUTH EVERY DAY Lasix [facility] 23434712265 40 MG Orally Active TAKE 1 Once a day TABLET BY MOUTH EVERY MORNING Spironolactone [facility] 78581226739 25 MG Orally Active 1 tablet Once a day with food Albuterol Sulfate [facility] 01500636970 (2.5 MG/3ML) Activ e 3 ml as 0.083% needed Inhalation every [address] [facility] 62366098749 15 MCG/2ML Active 2 ml Inhalation Twice a day Claritin [facility] 35052092241 10 mg Orally Active 1 tabl et Once a day KP Ferrous [facility] 00834911998 325 (65 Fe) MG Jul 16, Active 1 tablet Sulfate Orally twice a [address] [facility] 63735787736 18 MCG Active 1 capsule HandiHaler Inhalation Once a day ProAir HFA [facility] 46690689312 108 (90 Base) Active 2 p uffs as MCG/ACT needed Inhalation every [address] [facility] 75086956541 40 MG Orally Active 1 table t Once a day Vitamin D3 [facility] 39560867196 2000 UNIT Active 1 capsu le Orally Once a day Potassium [facility] 88534160157 10 MEQ Active TAKE 1 Chloride ER TABLET BY MOUTH EVERY DAY Results No Known Results Summary Purpose eClinicalWorks Submission
--- OUTSIDE RECORDS SUMMARY | 2020-06-05 16:50 | XMS REPORT ---
:1945 Author Organization eClinicalWorks Care Team Providers Name Role Phone Lin, Na Provider Role Unavailable Allergies No Known Allergies Problems Problem Type Condition Code Onset Dates Condition Statu s Problem Diabetes mellitus type 2, E11.9 Ac tive diet-controlled Problem Diverticulosis of colon K57.30 Acti ve Problem Family history of colon cancer Z80.0 Active Problem Dementia without behavioral F03.90 Active disturbance, unspecified dementia type Problem Anemia D64.9 Active Problem Seizure disorder G40.909 Active Problem Iron deficiency anemia, unspecified D50.9 Active iron deficiency anemia type Problem Hyperglobulinemia R77.1 Active Problem Dependence on supplemental oxygen Z99.81 Active Problem Medicare annual wellness visit, Z00.00 Active subsequent Problem Bilateral lower extremity edema R60.0 Active Problem Hypertension I10 Active Problem Allergic rhinitis J30.9 Active Problem Vitamin D deficiency E55.9 Active Problem COPD (chronic obstructive pulmonary J44.9 Active disease) Problem Hemorrhoids K64.9 Active Problem Umbilical hernia K42.9 Active Problem Hyperlipidemia E78.5 Active Problem Lung cancer C34.90 Active Problem Iron deficiency anemia D50.9 Activ e Problem History of cerebrovascular accident Z86.73 Active Medications No Known Medications Results No Known Results Summary Purpose eClinicalWorks Submission
[2020-06-05 21:16] LABS: Absolute Lymphocytes (CBC) 1.5 K/uL (0.7-4.9); Basophils % 0.6 % (0-1.3); Hematocrit 35.1 % (36.0-45.0); Lymphocytes % 12.5 % (15.3-44.8); MPV 7.6 fL (7.6-11.3); RBC Red Blood Cell Count 3.97 M/uL (3.86-4.86)
[2020-06-05 21:27] LABS: Albumin 2.4 g/dL (3.4-5.0); Bilirubin Direct 0.2 mg/dL (0-0.2); Bilirubin Total 0.4 mg/dL (0.2-1.0); Potassium 3.6 mmol/L (3.5-5.1); Protein, Total 8.7 g/dL (6.4-8.2)
[2020-06-05] MEDS ORDERED: NA CHLORIDE 0.9% 2,000 ML ONE (21:42)
--- NOTE | 2020-06-05 22:50 | EDPHYS ---
Physician Documentation [facility] Name: Debi Sanches Age: 75 yrs Sex: Female : 1945 Arrival Date: 06/05/2020 Time: 16:51 Bed 18 Private MD: Evelyn Lin ED Physician Daniel Talbot HPI: 06/05 20:52 This 75 yrs old Black Female presents to ER via Ambulatory with complaints of Abscess. pkl 20:52 The patient presents with abdominal pain in the left upper quadrant, in the left lower pkl quadrant. Onset: The symptoms/episode began/occurred 2 week(s) ago. Associated signs and symptoms: Pertinent positives: not eating well. Historical: - Allergies: 17:20 No Known Allergies; em - PMHx: 17:20 CVA; Hypertension; Cancer, Lung; lymphedema; COPD; Emphysema; lobectomy lung top right; em lung cancer 2010; - PSHx: 17:20 Tubal ligation; Lobectomy; em - Immunization history:: Adult Immunizations up to date. - Social history:: Smoking status: Patient denies any tobacco usage or history of. ROS: 20:52 Eyes: Negative for injury, pain, redness, and discharge, ENT: Negative for injury, pkl pain, and discharge, Neck: Negative for injury, pain, and swelling, Cardiovascular: Negative for chest pain, palpitations, and edema, Respiratory: Negative for shortness of breath, cough, wheezing, and pleuritic chest pain. 20:52 Abdomen/GI: Positive for abdominal pain, of the left upper quadrant and left lower quadrant. 20:52 Back: Negative for acute changes. 20:52 : Negative for urinary symptoms. 20:52 MS/extremity: Negative for acute changes. 20:52 Skin: Positive for rash. 20:52 Neuro: Negative for altered mental status. Exam: 20:52 Head/Face: Normocephalic, atraumatic. Eyes: Pupils equal round and reactive to light, pkl extra-ocular motions intact. Lids and lashes normal. Conjunctiva and sclera are non-icteric and not injected. Cornea within normal limits. Periorbital areas with no swelling, redness, or edema. ENT: Nares patent. No nasal discharge, no septal abnormalities noted. Tympanic membranes are normal and external auditory canals are clear. Oropharynx with no redness, swelling, or masses, exudates, or evidence of obstruction, uvula midline. Mucous membranes moist. Neck: Trachea midline, no thyromegaly or masses palpated, and no cervical lymphadenopathy. Supple, full range of motion without nuchal rigidity, or vertebral point tenderness. No Meningismus. Chest/axilla: Normal chest wall appearance and motion. Nontender with no deformity. No lesions are appreciated. Cardiovascular: Regular rate and rhythm with a normal S1 and S2. No gallops, murmurs, or rubs. Normal PMI, no JVD. No pulse deficits. Respiratory: Lungs have equal breath sounds bilaterally, clear to auscultation and percussion. No rales, rhonchi or wheezes noted. No increased work of breathing, no retractions or nasal flaring. 20:52 Abdomen/GI: Bowel sounds: normal, Palpation: soft, mild abdominal tenderness, in the left upper quadrant and left lower quadrant. 20:52 Back: Exam negative for acute changes. 20:52 : Exam negative for acute changes. 20:52 Musculoskeletal/extremity: Exam is negative for acute changes. 20:52 Skin: Exam negative for rash. 20:52 Neuro: Orientation: is normal, Mentation: is normal, Cranial nerves: grossly normal, Motor: is normal. Vital Signs: 17:17 BP 141 / 81; Pulse 121; Resp 18; Temp 98.6(O); Pulse Ox 100% on R/A; Weight 54.88 kg; em Height 5 ft. 6 in. (167.64 cm); Pain 5/10; 22:00 BP 116 / 64; Pulse 107; Resp 16; Temp 97.9(O); Pulse Ox 95% on R/A; Pain 0/10; ls4 23:43 BP 127 / 63; Pulse 101; Resp 14; Temp 97.8; Pulse Ox 97% ; Pain 0/10; ls4 17:17 Body Mass Index 19.53 (54.88 kg, 167.64 cm) em MDM: 20:14 Patient medically screened. pkl 22:40 Data reviewed: vital signs, nurses notes, lab test result(s), EKG, radiologic studies, pkl CT scan. ED course: Talked to Dr. Nancy Fuentes, transfer to [facility]. 06/05 20:26 Order name: Basic Metabolic Panel; Complete Time: 21:36 pkl 06/05 20:26 Order name: CBC with Diff; Complete Time: 21:36 pkl 06/05 20:26 Order name: Hepatic Function; Complete Time: 21:36 pkl 06/05 20:26 Order name: Lipase; Complete Time: 21:36 pkl 06/05 20:26 Order name: XRAY CXR (1 view) pkl 06/05 20:26 Order name: IV Saline Lock; Complete Time: 20:37 pkl 06/05 20:26 Order name: Labs collected and sent; Complete Time: 20:37 pkl Administered Medications: 20:37 Drug: NS 0.9% 500 ml Route: IV; Rate: bolus; Site: right antecubital; ls4 20:37 Drug: NS 0.9% 1000 ml Route: IV; Rate: 100 ml/hr; Site: right antecubital; ls4 06/06 01:20 Follow up: Response: No adverse reaction; IV Status: Completed infusion; IV Intake: ch2 1000ml 06/05 23:57 Drug: Zosyn 3.375 grams Route: IVPB; Infused Over: 60 mins; Site: left antecubital; ls4 06/06 01:19 Follow up: Response: No adverse reaction; IV Status: Completed infusion ch2 Disposition: 06/05/20 22:49 Transfer ordered to [facility]. 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 - Reason for transfer: Higher level of care. - Accepting physician is Dr. Nancy Fuentes. - Condition is Stable. - Problem is new. - Symptoms are unchanged. Signatures: Dispatcher [employer] Daniel Mora MD MD pkl Munoz, Edgar RN RN em Ana Carlosn RN RN bb Sunitha Mejia RN RN ch2 Ruthann Jimenez RN RN ls4 Corrections: (The following items were deleted from the chart) 01:21 06/05 22:49 06/05/2020 22:49 Transfer ordered to [facility]. 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 Reason for transfer: Higher level of care. Accepting physician is Dr. Nancy Fuentes. Condition is Stable. Problem is new. Symptoms are unchanged. pkl
--- NOTE | 2020-06-05 22:50 | ER ---
Nurse's Notes 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 Coronavirus screen: Client denies travel out of the [place] in the last 14 days. Ebola Screen: Patient negative for fever greater than or equal to 101.5 degrees Fahrenheit, and additional compatible Ebola Virus Disease symptoms Patient denies exposure to infectious person. Patient denies travel to an Ebola-affected area in the 21 days before illness onset. No symptoms or risks identified at this time. Initial Sepsis Screen: Does the patient meet any 2 criteria? HR > 90 bpm. No. Patient's initial sepsis screen is negative. Does the patient have a suspected source of infection? No. Patient's initial sepsis screen is negative. Risk Assessment: Do you want to hurt yourself or someone else? Patient reports no desire to harm self or others. Onset of symptoms was April 2020. 17:17 Method Of Arrival: Ambulatory em 17:17 Acuity: HE 3 em 18:20 Acuity: HE 2 iw Triage Assessment: 23:46 General: Appears in no apparent distress. ls4 06/06 01:19 General: Behavior is calm, cooperative, appropriate for age, quiet. ch2 Historical: - Allergies: 06/05 17:20 No Known Allergies; em - PMHx: 17:20 CVA; Hypertension; Cancer, Lung; lymphedema; COPD; Emphysema; lobectomy lung top right; em lung cancer 2010; - PSHx: 17:20 Tubal ligation; Lobectomy; em - Immunization history:: Adult Immunizations up to date. - Social history:: Smoking status: Patient denies any tobacco usage or history of. Screenin:31 Abuse screen: Denies threats or abuse. Denies injuries from another. Nutritional ls4 screening: No deficits noted. Tuberculosis screening: No symptoms or risk factors identified. Fall Risk None identified. Assessment: 23:45 Pain: Denies pain. ls4 Vital Signs: 17:17 BP 141 / 81; Pulse 121; Resp 18; Temp 98.6(O); Pulse Ox 100% on R/A; Weight 54.88 kg; em Height 5 ft. 6 in. (167.64 cm); Pain 5/10; 22:00 BP 116 / 64; Pulse 107; Resp 16; Temp 97.9(O); Pulse Ox 95% on R/A; Pain 0/10; ls4 23:43 BP 127 / 63; Pulse 101; Resp 14; Temp 97.8; Pulse Ox 97% ; Pain 0/10; ls4 17:17 Body Mass Index 19.53 (54.88 kg, 167.64 cm) em ED Course: 16:51 Patient arrived in ED. mr 16:51 Evelyn Lin MD is Private Physician. mr 17:19 Triage completed. em 17:20 Arm band placed on. em 18:31 Ruthann Jimenez, RN is Primary Nurse. ls4 20:14 Daniel Talbot MD is Attending Physician. pkl 21:01 XRAY CXR (1 view) In Process Unspecified. EDMS 21:09 No apparent distress. ls4 21:09 No provider procedures requiring assistance completed. Inserted saline lock: 18 gauge ls4 in left Blood collected. 21:09 Initial lab(s) drawn, by me, sent to lab. Patient maintains SpO2 saturation greater ls4 than 95% on room air. 21:45 initiated a transfer with Lisa Braden from [facility]. mw2 22:[address] Alva the hospitalist control clerk auditing at [facility] with Dr. Talbot for [facility] patient transfer consultation. 22:43 administrative approval given by Lisa Braden/ patient has been accepted to [address] 9 tower bed 960/ Dr. Alva has accepted the patient in transfer/ report to be called to [phone]. 23:55 called [facility] spoke to Eliu to see if the would transfer patient. He stated mw2 "give us about 45 minutes to an hour.". 06/06 01:04 called Eliu from [facility] for an ETA on the ambulance he said "they had to fuel mw2 up they will be there within 5 to 10 minutes.". 01:19 Bed in low position. Call light in reach. ch2 01:19 Patient transferred, IV remains in place. ch2 Administered Medications: 06/05 20:37 Drug: NS 0.9% 500 ml Route: IV; Rate: bolus; Site: right antecubital; ls4 20:37 Drug: NS 0.9% 1000 ml Route: IV; Rate: 100 ml/hr; Site: right antecubital; ls4 06/06 01:20 Follow up: Response: No adverse reaction; IV Status: Completed infusion; IV Intake: ch2 1000ml 06/05 23:57 Drug: Zosyn 3.375 grams Route: IVPB; Infused Over: 60 mins; Site: left antecubital; ls4 06/06 01:19 Follow up: Response: No adverse reaction; IV Status: Completed infusion ch2 Intake: 01:20 IV: 1000ml; Total: 1000ml. ch2 Outcome: 06/05 22:49 ER care complete, transfer ordered by . agustín 06/06 01:18 Transferred by ground EMS to [facility], Transfer form completed. ch2 X-rays sent w/ patient. Note: report given to [facility] Condition: stable Instructed on the need for transfer. 01:21 Patient left the ED. ch2 Signatures: Dispatcher [employer] Daniel Mora MD MD pkl Rivera Stephanie vazquez Erwin Lara RN RN em Williams, Irene, RN RN iw Hanna, Candace, RN RN [facility] Berenice York mw2 Ruthann Jimenez RN RN ls4 Corrections: (The following items were deleted from the chart) 06/05 17:19 17:02 Chief complaint: em em
[2020-06-06] MEDS ORDERED: PIPER/TAZO/NS 3.375gm 3.375 GM/100 ML BAG ONE (00:05)
--- NOTE | 2020-06-06 07:20 | RAD REPORT ---
EXAM DESCRIPTION: RAD - Chest Single View - 06/05/2020 9:00 pm CLINICAL HISTORY: ABDOMINAL DISTENTION COMPARISON: Two view chest August 2017, CT chest February 2017 TECHNIQUE: AP portable chest image was obtained 06/05/2020 9:00 pm . FINDINGS: Left lung field is clear. Vague nodular focus in the lower left lung field is doubtful as being a true lung parenchymal nodule. This can be re-evaluated on any follow-up chest film. Right tracheal shift is present as previously noted. Postsurgical changes are noted from lobectomy or other right thoracic surgical procedure. Numerous surgical clips are present. Right apical pleural t hickening similar to comparison. Increased aeration in the upper right lung field is likely hyperexpa nsion of the right chest remaining low or lobes. Superimposed infiltrate is doubtful. Current appeara nce can be explained by the surgical procedure in therapy. Deformity of the lateral right ribcage sta ble. Heart and vasculature are normal. No measurable pleural effusion and no pneumothorax. No acute bony a bnormality seen. No acute aortic findings suspected. IMPRESSION: Extensive pleural and parenchymal changes in the mid and upper right lung field from sunil or lobectomy or similar thoracic surgery. No acute infiltrate suspected. No failure or volume overload. Vague nodular density lower left lung field is believed to be artifact rather than true nodule. This can be re-evaluated on a follow-up chest examination, preferably a two-view study.
[2020-06-06 14:04] VITALS: BP 127/63; TEMP 97.8; O2SAT 97
== END 2020-06-06 01:21 | disposition short-term general hospital (02) ==
LOC: ER 16:47
DX: K85.92 Acute pancreatitis with infected necrosis, unspecified (principal); I10 Essential (primary) hypertension; Z85.118 Personal history of other malignant neoplasm of bronchus and lung
CPT/HCPCS: 96365; 96361; 85025; 80048; 36415; 80076; 83690; 71045; 99285; J7030